=== PATIENT | female | born 1975 | race Caucasian/White ===

== ENCOUNTER → 2023-07-15 12:48 | Outpatient (CLI) | payer OTHER, SELFPAY ==
--- NOTE | 2023-07-15 12:51 | DI.US.S_ITS ---
PROCEDURE: US ABDOMEN LIMITED INDICATIONS: Elevated LFT TECHNIQUE: Real-time scanning was performed of the abdominal and retroperitoneal organs, with image documentation. COMPARISON: None. FINDINGS: Liver: Liver is normal in size and homogeneous in echotexture. Gallbladder: No gallstones. No wall thickening. No pericholecystic edema. Negative sonographic Hodgson's sign. Biliary ducts: Intrahepatic bile ducts are non-dilated. Extrahepatic bile duct caliber measures 4 mm. Normal is 6-7 mm or less in diameter, or 10 mm or less post-cholecystectomy. Pancreas: Visualized portions of the pancreas are sonographically normal. Miscellaneous: No free abdominal fluid. IMPRESSION: No acute abnormality. Normal liver echogenicity and no gallbladder pathology. Dictated by: Devang Baum M.D. on 07/15/2023 at 15:40 Approved by: Devang Baum M.D. on 07/15/2023 at 15:41
== END ==
PROVIDERS: PCP Family Medicine; Referring Provider Nurse Practitioner; Visit Provider Nurse Practitioner
DX: R74.8 Abnormal levels of other serum enzymes (principal)
CPT/HCPCS: 76705

== ENCOUNTER 2023-08-15 23:12 | Emergency (ER) | payer OTHER, SELFPAY ==
[2023-08-15 23:19] VITALS: BP 129/83; PULSE 66; RESP 20; TEMP 36.6; O2SAT 96; BMI 23.9
--- NOTE | 2023-08-15 23:33 | ED.GENADULT ---
HPI - General Adult General Chief complaint: Abdominal Pain Stated complaint: RLQ Time Seen by Provider: 08/15/23 23:12 Source: patient and EMS Mode of arrival: EMS History of Present Illness HPI narrative: 48-year-old woman with history of hyperlipidemia and ADD currently living on [place] is brought by air lift to [facility] for evaluation of right lower quadrant tenderness. She states that 3 days ago she noticed some mild discomfort in the right lower quadrant. Assumed it was menstrual cramps or constipation and that much of it. Tonight it became severe to the point that she was unable to find a comfortable position. She is having increasing urination secondary to the discomfort not necessarily dysuria. She has had no blood in her urine. No history of kidney stones still has her appendix in place. She has been significantly nauseated and vomited shortly after having dinner at 6:00 p.m. this evening. She does not describe fevers. Related Data Previous Rx's Medication Instructions Recorded ondansetron 4 mg disintegrating 4 mg PO Q8H PRN nausea and 08/16/23 tablet vomiting #14 tabs oxycodone-acetaminophen 5 mg-325 1 tab PO Q6H PRN pain #10 tabs 08/16/23 mg tablet tamsulosin 0.4 mg capsule 0.4 mg PO DAILY #14 caps 08/16/23 Allergies Allergy/AdvReac Type Severity Reaction Status Date / Time No Known Drug Allergies Allergy Verified 08/16/23 00:11 Review of Systems Review of Systems Narrative: Pertinent positive and negative findings as per HPI Patient History Medical History (Updated 08/16/23 @ 02:11 by Ann Rhodes MD) ADD (attention deficit disorder) Hyperlipidemia Social History Smoking Status: Former smoker Smoking Status: Former smoker alcohol intake frequency: other Substance Use Type: does not use Exam Initial Vital Signs Initial Vital Signs: Vital Signs Temperature 97.9 F 08/15/23 23:19 Pulse Rate 66 08/15/23 23:19 Respiratory Rate 20 08/15/23 23:19 Blood Pressure 129/83 08/15/23 23:19 Pulse Oximetry 96 08/15/23 23:19 Oxygen Delivery Method Room Air 08/15/23 23:19 General: Healthy appearing, in obvious pain but Able to give a complete and coherent history. Well-nourished well-developed HEENT: Moist mucous membranes, normal sclera with reactive pupils, Respiratory: Lungs are clear to auscultation, no wheezing no rales no rhonchi. Full and symmetrical air movement Cardiac: Regular rate and rhythm no murmurs no bruits Abdomen: Soft, tender in the right lower quadrant with early guarding. No rebound. Palpation in the left lower quadrant as well as the right upper quadrant all cause pain in the right lower quadrant. There is no flank pain. Skin: Warm and dry, no rashes Neurologic: Grossly neurologically intact with no obvious asymmetries or abnormalities Extremities: No trauma, well perfused Psych: Cooperative, appropriate insight and affect Course Orders Ordered: ED Orders 08/15/23 23:20 Complete Blood Count AUTO DIFF Stat Comprehensive Metabolic Panel Stat Lipase Stat 08/15/23 23:33 EKG-12 Lead Stat 08/15/23 23:40 Urine Microscopic Stat 08/16/23 00:16 CT abdomen pelvis w con Stat Discontinued Medications Hydromorphone HCl (Hydromorphone 0.5 Mg Inj) 0.5 mg IV Q15MIN PRN PRN Reason: Pain, Last Admin: 08/16/23 01:13 Dose: 0.5 mg Documented By: Admin: 08/16/23 00:39 Dose: 0.5 mg Documented By: Admin: 08/16/23 00:12 Dose: 0.5 mg Documented By: Sodium Chloride (Normal Saline 0.9%) 1,000 mls @ 1,000 mls/hr IV BOLUS ONE Stop: 08/16/23 01:01 Last Infusion: 08/16/23 01:00 Dose: Infused Documented By: Admin: 08/16/23 00:11 Dose: 1,000 mls/hr Documented By: Ketorolac Tromethamine (Ketorolac 30 Mg/Ml Vial) 15 mg IV NOW ONE Stop: 08/16/23 01:37 Last Admin: 08/16/23 01:45 Dose: 15 mg Documented By: ERNESTO Ondansetron HCl (Ondansetron 4 Mg/2 Ml Inj) 4 mg IV NOW PRN PRN Reason: Nausea And Vomiting Last Admin: 08/15/23 23:45 Dose: 4 mg Documented By: Ondansetron HCl (Ondansetron 4 Mg Odt) 4 mg PO NOW PRN PRN Reason: Nausea And Vomiting Ondansetron HCl (Ondansetron 4 Mg/2 Ml Inj) 4 mg IV NOW ONE Stop: 08/16/23 00:03 Last Admin: 08/16/23 00:13 Dose: Not Given Documented By: Ondansetron HCl (Ondansetron 4 Mg Odt Prepack) 1 bottle MISC DIRECTED ONE Stop: 08/16/23 01:37 Last Admin: 08/16/23 01:45 Dose: 1 bottle Documented By: ERNESTO Oxycodone/Acetaminophen (Oxycodone/Acetaminophen 5/325 Tablet) 1 tab PO NOW ONE Stop: 08/16/23 01:37 Last Admin: 08/16/23 01:45 Dose: 1 tab Documented By: ERNESTO Oxycodone/Acetaminophen (Oxycodone/Apap 5/325 Prepack) 1 bottle MISC DIRECTED ONE Stop: 08/16/23 01:37 Last Admin: 08/16/23 01:45 Dose: 1 bottle Documented By: ERNESTO Tamsulosin HCl (Tamsulosin 0.4 Mg Capsule) 0.4 mg PO NOW ONE Stop: 08/16/23 01:59 Last Admin: 08/16/23 02:04 Dose: 0.4 mg Documented By: ERNESTO Vital Signs Vital signs: Vital Signs - 8 hr 08/15/23 23:19 08/16/23 06:01 Temperature 97.9 F 98.7 F Pulse Rate 66 77 Respiratory Rate 20 15 Blood Pressure 129/83 129/79 Pulse Oximetry 96 100 Oxygen Delivery Method Room Air Room Air Medical Decision Making Lab Data 08/15/23 23:20 08/15/23 23:20 Labs: Lab Results 08/15/23 08/15/23 Range/Units 23:20 23:40 WBC 12.2 H (4.5-11.0) X10^3/uL RBC 4.75 (4.0-5.2) X10^6/uL Hgb 14.6 (12.0-16.0) g/dL Hct 43.3 (36-46) % MCV 91.2 (80-100) fL MCH 30.7 (26-34) PG MCHC 33.7 (30-36) % RDW 13.1 (11.6-14.8) % Plt Count 249 (150-400) X10^3/uL Neut % (Auto) 72.8 (50-75) % Lymph % (Auto) 17.8 L (25-40) % [place] % (Auto) 8.6 (3-14) % Eos % (Auto) 0.4 L (2-4) % Baso % (Auto) 0.4 (0-2) % Neut # (Auto) 8800 H (9029-2234) /uL Lymph # (Auto) 2200 (6178-0422) /uL [place] # (Auto) 1000 H (0-900) /uL Eos # (Auto) 100 (0-450) /uL Baso # (Auto) 100 (0-100) /uL Sodium 138 (137-145) mmol/L Potassium 3.9 (3.4-5.1) mmol/L Chloride 109 H (98-107) mmol/L Carbon Dioxide 23 (22-32) mmol/L BUN 14 (7-17) mg/dL Creatinine 0.65 (0.52-1.04) mg/dL Estimated GFR > 60 (>60) mL/min BUN/Creatinine Ratio 21.5 (6-22) Glucose 120 H (70-100) mg/dL Calcium 9.6 (8.4-10.2) mg/dL Total Bilirubin 0.4 (0.2-1.3) mg/dL AST 44 H (14-36) IU/L ALT 78 H (<35) IU/L Alkaline Phosphatase 58 (38-126) U/L Total Protein 7.0 (6.3-8.2) g/dL Albumin 4.5 (3.5-5.0) g/dL Globulin 2.5 (1.7-4.1) g/dL Albumin/Globulin Ratio 1.8 (1.0-2.8) Lipase 180 (23-300) U/L Urine RBC 0-1/hpf (0-5/HPF) Urine WBC None seen (0-5/HPF) Ur Squamous Epith Cells 0-1 /hpf (0-5/HPF) Amorphous Sediment 2+ Urine Bacteria None seen (None) Ur Culture Indicated? Cult not indicated Vol Urine Centrifuged 10ml (spun) Point of Care Testing Test Results Negative Urine Dip Bedside Urine Glucose Negative Bedside Urine Bilirubin - Negative Bedside Urine Ketone ++ 40 Urine Specific [place] 1.015 Bedside Urine Occult Blood - Negative Bedside Urine pH 7.0 Bedside Urine Protein - Negative Bedside Urine Urobilinogen - Negative Bedside Urine Nitrite - Negative Bedside Urine Leukocytes - Negative Esterase Point of care testing: Point of Care Testing Test Results Negative Urine Dip Bedside Urine Glucose Negative Bedside Urine Bilirubin - Negative Bedside Urine Ketone ++ 40 Urine Specific [place] 1.015 Bedside Urine Occult Blood - Negative Bedside Urine pH 7.0 Bedside Urine Protein - Negative Bedside Urine Urobilinogen - Negative Bedside Urine Nitrite - Negative Bedside Urine Leukocytes - Negative Esterase Imaging Data CT scan - abdomen/pelvis: Radiologist's Impression: PROCEDURE: CT ABDOMEN PELVIS W CON INDICATIONS: RLQ pain TECHNIQUE: After the administration of intravenous contrast, axial sections acquired from the lung bases to the pubic symphysis. Coronal and sagittal reformats were performed. For radiation dose reduction, the following was used: automated exposure control, adjustment of mA and/or kV according to patient size. COMPARISON: None. FINDINGS: Image quality: Diagnostic. Lower Chest: No significant findings. ABDOMEN: Liver: No solid mass. Gallbladder: No radiopaque gallstones or wall thickening. Biliary ducts: No biliary dilation. Pancreas: No ductal dilation. Spleen: Size is within normal limits. Adrenal Glands: No adrenal nodules. Kidneys and Ureters: Moderate right hydroureteronephrosis. Obstructing 7 mm (HU 819) calculus at the distal right ureter.. No solid mass. No complex renal cystic lesion which requires follow up. Stomach and Bowel: Normal colonic caliber, without significant wall thickening. Normal caliber appendix in the right lower quadrant. Peritoneum: No abnormal intraperitoneal fluid. No free air. Ventral Wall: No significant ventral hernia. Abdominal Nodes: No retroperitoneal or mesenteric adenopathy by size criteria. Vessels: Aorta and inferior vena cava are normal in size. PELVIS: Pelvic Organs: Unremarkable. Bladder: No bladder wall thickening, accounting for underdistention. Pelvic Nodes: No enlarged lymph nodes. Miscellaneous: No inguinal hernias are seen. Bones: No aggressive osseous abnormality. IMPRESSION: Obstructing 7 mm calculus in the distal right ureter with moderate upstream hydroureteronephrosis. Approved by: Soni Starkey M.D.,Ph.D. on 08/16/2023 at 1:53 MDM Narrative Medical decision making narrative: CC: Right lower quadrant abdominal pain Data collected from: patient Social determinants of health that may influence the patients condition: Patient lives in [place] Differential considered: Appendicitis, gastroenteritis, constipation, ovarian cyst, ovarian torsion Exam documented above, pertinent findings include: Significant right lower quadrant tenderness Lab Test results independently reviewed as above. Pertinent findings: Chemistries are unremarkable with the exception of minimal elevation of AST and ALT at 44 and 78 respectively Lipase is unremarkable at 180 CBC shows a white count of 12.2. Imaging studies independently reviewed: 7 mm stone in the distal right ureter with right-sided hydronephrosis. No other findings to explain her pain Treatments: Fluids, parenteral narcotics, Toradol, Zofran, oral Percocet Discussion: Patient is feeling better. No evidence of infection behind the 7 mm obstructing right ureteral stone. Discussed probability that this will pass by itself. Probability will increase with the use of Flomax. She will be discharged home with pain medication, instructions, prescription for Flomax and reasons to return to the emergency department including signs and symptoms of pyelonephritis or sepsis. Will refer her to the [facility] to schedule an appointment if the stone has not passed within a week or so. At 7 mm she will likely notice the stone landing in the toilet when it does pass. Questions are answered and she will be safe for discharge Discharge Plan Departure Patient Disposition: Home Clinical Impression: Ureterolithiasis Instructions: DI for Kidney Stones Activity Restrictions/Additional Instructions: Thank you for coming in today You have a kidney stone on the right side. It is in the large side common 7 mm. It is almost all the way down the ureter and into your bladder. It may pass within the next few hours but it may take up to a week. If it is taking longer than that, you are having pain that can not be controlled, you develop fevers or feel like you have a bladder infection or kidney infection you need to return to the emergency department. Please continue taking the Flomax/tamsulosin daily. This helps open up the ureter a bit so that your more likely to be able to pass a 7 mm stone without surgical intervention. Once the stone has passed you can stop this medication Using 400 mg of ibuprofen (2 [id number] pills) and 1 Tylenol every 6 hours can be very helpful in controlling pain. For severe pain use 1 Percocet and 400 mg of ibuprofen. Please make sure you are keeping well hydrated. Prescriptions have been electronically transmitted If it has been more than a week and you still have not passed the stone, please contact [facility] at [phone] and explain that you were seen in the emergency department, you have a 7 mm stone in the right ureter that has not yet passed in you need to be seen for further evaluation. The office address is [address] [place] [address]. Prescriptions: New ondansetron 4 mg tablet,disintegrating 4 mg PO Q8H PRN (Reason: nausea and vomiting) Qty: 14 0RF oxycodone-acetaminophen 5-325 mg tablet 1 tab PO Q6H PRN (Reason: pain) Qty: 10 0RF tamsulosin 0.4 mg capsule 0.4 mg PO DAILY Qty: 14 0RF Referrals: Franci Rizo MD [Primary Care Provider] - Stand Alone Forms: Patient Portal/API
[2023-08-15 23:42] LABS: Add Manual Diff / Slide Review NO; Basophils Absolute Auto 100 /uL (0-100); Basophils Percent Auto 0.4 % (0-2); Eosinophils Absolute Auto 100 /uL (0-450); Eosinophils Percent Auto 0.4 % (2-4); Hematocrit 43.3 % (36-46); Hemoglobin 14.6 g/dL (12.0-16.0); Lymphocytes Absolute Auto 2200 /uL (1100-4500); Lymphocytes Percent Auto 17.8 % (25-40); Mean Corpuscular HGB Conc 33.7 % (30-36); Mean Corpuscular Hemoglobin 30.7 PG (26-34); Mean Corpuscular Volume 91.2 fL (80-100); Monocytes Absolute Auto 1000 /uL (0-900); Monocytes Percent Auto 8.6 % (3-14); Neutrophils Absolute Auto 8800 /uL (1500-7000); Neutrophils Percent Auto 72.8 % (50-75); Platelet Count 249 X10^3/uL (150-400); Red Blood Cell Count 4.75 X10^6/uL (4.0-5.2); Red Cell Distribution Width 13.1 % (11.6-14.8); White Blood Cell Count 12.2 X10^3/uL (4.5-11.0)
[2023-08-15 23:45] LABS: Alanine Aminotransferase 78 IU/L (<35); Albumin 4.5 g/dL (3.5-5.0); Albumin Globulin Ratio 1.8 (1.0-2.8); Alkaline Phosphatase 58 U/L (38-126); Aspartate Aminotransferase 44 IU/L (14-36); BUN Creatinine Ratio 21.5 (6-22); Bilirubin Total 0.4 mg/dL (0.2-1.3); Blood Urea Nitrogen 14 mg/dL (7-17); Calcium 9.6 mg/dL (8.4-10.2); Carbon Dioxide 23 mmol/L (22-32); Chloride 109 mmol/L (98-107); Estimated Glomerular Filt Rate > 60 mL/min (>60); Globulin 2.5 g/dL (1.7-4.1); Glucose 120 mg/dL (70-100); HEMOLYSIS < 15 (0-50); Lipase 180 U/L (23-300); Potassium 3.9 mmol/L (3.4-5.1); Sodium 138 mmol/L (137-145)
[2023-08-15] MEDS: ONDANSETRON 4 MG/2 ML INJ IV (23:45)
[2023-08-16 00:11] LABS: Amorphous Sediment Urine 2+; Bacteria Urine None Seen; Culture Indicated Urine Cult Not Indicated; RBC Urine 0-1/HPF (0-5/HPF); Squamous Epithelial Cell Urine 0-1 /HPF (0-5/HPF); Urine Volume 10mL (spun); WBC Urine None Seen (0-5/HPF)
[2023-08-16] MEDS: SODIUM CHLORIDE 0.9% 1,000 ML 1000 ML IV (00:11)
[2023-08-16] MEDS: HYDROMORPHONE 0.5 MG INJ IV ×3 (00:12→01:13)
--- NOTE | 2023-08-16 00:16 | DI.CT.S_ITS ---
PROCEDURE: CT ABDOMEN PELVIS W CON INDICATIONS: RLQ pain TECHNIQUE: After the administration of intravenous contrast, axial sections acquired from the lung bases to the pubic symphysis. Coronal and sagittal reformats were performed. For radiation dose reduction, the following was used: automated exposure control, adjustment of mA and/or kV according to patient size. COMPARISON: None. FINDINGS: Image quality: Diagnostic. Lower Chest: No significant findings. ABDOMEN: Liver: No solid mass. Gallbladder: No radiopaque gallstones or wall thickening. Biliary ducts: No biliary dilation. Pancreas: No ductal dilation. Spleen: Size is within normal limits. Adrenal Glands: No adrenal nodules. Kidneys and Ureters: Moderate right hydroureteronephrosis. Obstructing 7 mm (HU 819) calculus at the distal right ureter.. No solid mass. No complex renal cystic lesion which requires follow up. Stomach and Bowel: Normal colonic caliber, without significant wall thickening. Normal caliber appendix in the right lower quadrant. Peritoneum: No abnormal intraperitoneal fluid. No free air. Ventral Wall: No significant ventral hernia. Abdominal Nodes: No retroperitoneal or mesenteric adenopathy by size criteria. Vessels: Aorta and inferior vena cava are normal in size. PELVIS: Pelvic Organs: Unremarkable. Bladder: No bladder wall thickening, accounting for underdistention. Pelvic Nodes: No enlarged lymph nodes. Miscellaneous: No inguinal hernias are seen. Bones: No aggressive osseous abnormality. IMPRESSION: Obstructing 7 mm calculus in the distal right ureter with moderate upstream hydroureteronephrosis. Approved by: Soni Starkey M.D.,Ph.D. on 08/16/2023 at 1:53
[2023-08-16] MEDS: OXYCODONE/ACETAMINOPHEN 5/325 TABLET 1 TAB PO (01:45)
[2023-08-16] MEDS: ONDANSETRON 4 MG ODT PREPACK 1 BOTTLE MISC (01:45)
[2023-08-16] MEDS: KETOROLAC 30 MG/ML VIAL 15 MG IV (01:45)
[2023-08-16] MEDS: OXYCODONE/APAP 5/325 PREPACK 1 BOTTLE MISC (01:45)
--- NOTE | 2023-08-16 01:58 | PC.NURSE ---
Pt ambulates to restroom independently
[2023-08-16] MEDS: TAMSULOSIN 0.4 MG CAPSULE PO (02:04)
--- NOTE | 2023-08-16 02:45 | PC.NURSE ---
pt will be dc in am when ride available to take pt to [facility] pt resting and will continue to monitor
[2023-08-16 06:01] VITALS: BP 129/79; PULSE 77; RESP 15; TEMP 37.1; O2SAT 100
== END 2023-08-16 06:02 | disposition home or self-care (01) ==
PROVIDERS: Emergency Provider Emergency Medicine; PCP Family Medicine
DX: N20.1 Calculus of ureter (principal); R11.2 Nausea with vomiting, unspecified
CPT/HCPCS: 36415; 74177; 80053; 81003; 81015; 81025; 83690; 85025; 96361; 96374; 96375; 99284; J1170; J1885; J2405; Q9967

== ENCOUNTER → 2023-11-23 14:20 | Outpatient (CLI) | payer OTHER, SELFPAY ==
--- NOTE | 2023-11-23 14:21 | DI.US.S_ITS ---
PROCEDURE: US THYROID INDICATIONS: SUBCLINICAL HYPERTHYROID AND DYSPHAGIA TECHNIQUE: Real-time scanning was performed of the thyroid gland, with image documentation. COMPARISON: None. FINDINGS: Thyroid: Right lobe measures 5.8 x 1.9 x 1.4 cm. Left lobe measures 6.2 x 2.1 x 1.5 cm. Isthmus is 0.31 cm thick. Echotexture is homogeneous. No discrete thyroid nodule is identified. No neck soft tissue lymphadenopathy or soft tissue mass. No drainable fluid collection. IMPRESSION: 1. Normal appearing thyroid gland. No discrete thyroid nodules. 2. No neck soft tissue lymphadenopathy. ACR TI-RADS definitions and recommendations: TI-RADS 1 (benign): 0 points. FNA not needed. TI-RADS 2 (not suspicious): 2 points. FNA not needed. TI-RADS 3 (mildly suspicious): 3 points. * FNA if 2.5 cm or larger, follow up if 1.5 cm or larger (at 1, 3, and 5 years). TI-RADS 4 (moderately suspicious): 4-6 points. * FNA if 1.5 cm or larger, follow up if 1 cm or larger (at 1, 2, 3, and 5 years). TI-RADS 5 (highly suspicious): 7 points or more. * FNA if 1 cm or larger, follow up if 0.5 cm or larger (every year for 5 years). Dictated by: Pal Huizar M.D. on 11/23/2023 at 20:39 Approved by: Pal Huizar M.D. on 11/23/2023 at 20:40
== END ==
PROVIDERS: PCP Family Medicine; Referring Provider Family Medicine; Visit Provider Family Medicine
DX: R13.19 Other dysphagia (principal); E05.90 Thyrotoxicosis, unspecified without thyrotoxic crisis or storm; Z83.49 Family history of other endocrine, nutritional and metabolic diseases
CPT/HCPCS: 76536